=== PATIENT | female | born 1945 | race Caucasian/White ===

== ENCOUNTER 2019-10-12 08:53 | Outpatient (CLI) | payer MEDICARE ==
--- NOTE | 2019-10-12 10:59 | CT ---
CT CERVICAL SPINE WITHOUT CONTRAST: Date: 10/12/2019 INDICATION: Cervical spinal stenosis. Neck pain. Right upper extremity numbness. FINDINGS: Cervical vertebra maintain height and alignment. There are moderate degenerative changes mid cervical spine. Loss of disc space is pronounced at C4-5, C5-6, and C6-7 levels. Findings at each level are d escribed. At C2-3, there is a central disc bulge indenting the anterior thecal sac and abutting the anterior co rd. Facet and uncinate hypertrophy results in mild left foraminal stenosis. At C3-4, there is a central disc protrusion with diffuse spondylosis which impinges on and mildly com presses the anterior cord. Left foraminal stenosis secondary to facet and uncinate hypertrophy. At C4-5, posterior spondylosis mildly impinges on the cord. Mild foraminal narrowing at this level. At C5-6, posterior spondylosis effaces the anterior subarachnoid space and abuts the cord. No signifi cant foraminal stenosis. At C6-7, mild posterior spondylosis flattens the thecal sac. Mild left foraminal narrowing due to unc inate hypertrophy. A pneumatocyst is incidentally noted within the C4 vertebra. IMPRESSION: Degenerative changes of the cervical spine with posterior spondylosis and hypertrophic changes produc ing central canal and foraminal stenosis as described at each level above. POS: [facility]
== END 2019-10-12 08:54 | disposition home or self-care (01) ==
LOC: BICCT 08:53
PROVIDERS: ATTEND Surgery
DX: M48.02 Spinal stenosis, cervical region (principal); M47.12 Other spondylosis with myelopathy, cervical region; M50.30 Other cervical disc degeneration, unspecified cervical region; M50.00 Cervical disc disorder with myelopathy, unspecified cervical region
CPT/HCPCS: 72125